=== PATIENT | male | born 1995 | race Caucasian/White ===

== ENCOUNTER → 2017-11-18 | Outpatient (CLI) | payer MEDICAID | LOC: M OUTALCOH 07:57 | DX: F12.20 Cannabis dependence, uncomplicated (principal) ==

== ENCOUNTER 2017-11-29 15:35 | Outpatient (RCR) | payer MEDICAID | END 2017-12-12 | LOC: M OUTALCOH 12-02 10:00 | DX: F12.20 Cannabis dependence, uncomplicated (principal) ==

== ENCOUNTER 2017-12-13 10:25 | Outpatient (RCR) | payer MEDICAID | END 2018-01-12 | LOC: M OUTALCOH 10:25 | DX: F12.20 Cannabis dependence, uncomplicated (principal) ==

== ENCOUNTER → 2018-02-23 | Outpatient (REF) | payer MEDICAID ==
[2018-02-23 12:36] LABS: BASO % 0.4 % (0.0-1.0); EOS # 0.1 10^3/uL (0.0-0.50); EOS % 0.9 % (0.0-3.0); HEMATOCRIT 41.5 % (42.0-52.0); HEMOGLOBIN 14.5 g/dl (13.5-17.5); IMMATURE GRANULOCYTE % 0.7 % (0-3.0); LYMPH # 1.7 10^3/uL (1.5-6.5); LYMPH % 25.1 % (24.0-44.0); MEAN CORPUSCULAR HGB CONC 34.9 g/dl (32.0-36.5); MEAN CORPUSCULAR VOLUME 91.6 fl (80.0-96.0); MONO # 0.5 10^3/uL (0.0-0.8); MONO % 6.9 % (0.0-5.0); NEUTROPHILS # 4.4 10^3/uL (1.8-7.7); PLATELET COUNT, AUTOMATED 202 10^3/uL (150-450); RED BLOOD COUNT 4.53 10^6/uL (4.30-6.10); RED CELL DISTRIBUTION WIDTH 12.2 % (11.5-14.5); WHITE BLOOD COUNT 6.7 10^3/uL (4.0-10.0)
[2018-02-23 14:02] LABS: ALBUMIN/GLOBULIN RATIO 1.18 (1.00-1.93); ALKALINE PHOSPHATASE 71 U/L (45-117); ALT/SGPT 20 U/L (12-78); ANION GAP 10 MEQ/L (8-16); AST/SGOT 11 U/L (7-37); BILIRUBIN,TOTAL 0.3 MG/DL (0.2-1.0); BLOOD UREA NITROGEN 14 MG/DL (7-18); CALCIUM LEVEL 8.4 MG/DL (8.5-10.1); CARBON DIOXIDE LEVEL 24 MEQ/L (21-32); CHLORIDE LEVEL 106 MEQ/L (98-107); CHOLESTEROL LEVEL 134 MG/DL (<200); CREATININE FOR GFR 0.76 MG/DL (0.70-1.30); GLOMERULAR FILTRATION RATE > 60.0 (>60); GLUCOSE, FASTING 98 MG/DL (70-100); HDL CHOLESTEROL 42 MG/DL (>40); LDL CHOLESTEROL 75 MG/DL (<100); NON-HDL-C 92 MG/DL; POTASSIUM SERUM 4.4 MEQ/L (3.5-5.1); SODIUM LEVEL 140 MEQ/L (136-145); TOTAL 25(OH) VITAMIN D 22.4 NG/ML (30.0-100.0); TOTAL PROTEIN 7.4 GM/DL (6.4-8.2); TRIGLYCERIDES LEVEL 86 MG/DL (<150)
== END ==
LOC: M LAB REF 11:56
DX: Z13.9 Encounter for screening, unspecified (principal)
CPT/HCPCS: 84443

== ENCOUNTER → 2020-05-01 | Outpatient (CLI) | payer SELFPAY | LOC: M LABSMTC 14:25 | PROVIDERS: ATTEND Pediatrics | DX: Z20.822 Contact with and (suspected) exposure to COVID-19 (principal) ==

== ENCOUNTER → 2021-01-29 | Outpatient (CLI) | payer MEDICAID, OTHER, SELFPAY | LOC: M LABSMTC 09:47 | PROVIDERS: ATTEND Pediatrics | DX: Z20.822 Contact with and (suspected) exposure to COVID-19 (principal) ==

== ENCOUNTER 2021-02-06 03:49 | Emergency (ER) | payer MEDICAID ==
[~2021-02-06] VITALS: Ht 167.6 cm; Wt 67.3 kg
[2021-02-06 05:01] LABS: HEMATOCRIT 42.9 % (42.0-52.0); HEMOGLOBIN 15.3 g/dl (13.5-17.5); MEAN CORPUSCULAR HEMOGLOBIN 32.1 pg (27.0-33.0); MEAN CORPUSCULAR HGB CONC 35.7 g/dl (32.0-36.5); MEAN CORPUSCULAR VOLUME 90.1 fl (80.0-96.0); PLATELET COUNT, AUTOMATED 287 10^3/uL (150-450); RED BLOOD COUNT 4.76 10^6/uL (4.30-6.10); WHITE BLOOD COUNT 6.8 10^3/uL (4.0-10.0)
[2021-02-06 05:25] LABS: AMPHETAMINES LEVEL URINE NEGATIVE (NEGATIVE); BARBITURATES URINE NEGATIVE (NEGATIVE); BENZODIAZEPINES URINE NEGATIVE (NEGATIVE); CANNABINOIDS URINE POSITIVE (NEGATIVE); COCAINE METABOLITE URINE NEGATIVE (NEGATIVE); METHADONE URINE NEGATIVE (NEGATIVE); OPIATES URINE NEGATIVE (NEGATIVE); PHENCYCLIDINE URINE NEGATIVE (NEGATIVE)
[2021-02-06 05:38] LABS: ACETAMINOPHEN LEVEL < 2.0 UG/ML (10.0-30.0); ALBUMIN 4.5 GM/DL (3.2-5.2); ALT/SGPT 26 U/L (12-78); BILIRUBIN,DIRECT 0.2 MG/DL (0.0-0.2); BILIRUBIN,TOTAL 0.5 MG/DL (0.2-1.0); BLOOD UREA NITROGEN 6 MG/DL (7-18); CALCIUM LEVEL 8.7 MG/DL (8.5-10.1); CARBON DIOXIDE LEVEL 24 MEQ/L (21-32); CHLORIDE LEVEL 109 MEQ/L (98-107); CREATININE FOR GFR 0.85 MG/DL (0.70-1.30); ETHYL ALCOHOL (ETHANOL) 0.121 % (0.000-0.010); GLOMERULAR FILTRATION RATE > 60.0 (>60); GLUCOSE, FASTING 98 MG/DL (70-100); POTASSIUM SERUM 3.8 MEQ/L (3.5-5.1); SALICYLATE LEVEL < 1.7 MG/DL (5.0-30.0); SODIUM LEVEL 143 MEQ/L (136-145); TOTAL PROTEIN 8.2 GM/DL (6.4-8.2)
[2021-02-06 17:40] LABS: RSV AMPLIFICATION NEGATIVE (NEGATIVE)
[2021-02-06] MEDS ORDERED: HOME MED LIST COMPLETE! XX SCH (20:10)
[2021-02-07 08:21] VITALS: BP 154/88
== END 2021-02-07 08:20 ==
LOC: M ED 03:49
DX: R45.851 Suicidal ideations (principal); F12.10 Cannabis abuse, uncomplicated

== ENCOUNTER 2024-12-18 23:32 | Emergency (ER) | payer MEDICAID, OTHER ==
[~2024-12-18] VITALS: Ht 167.6 cm; Wt 71.1 kg
[2024-12-19] MEDS: LIDOCAINE 2% MDV 20 ML VIAL SC ONE (05:15)
[2024-12-19] MEDS: NEOSPORIN OINT 0.9 GM PKT TOP ONE (06:13)
[2024-12-19 06:24] VITALS: BP 121/73; TEMP 98.5; O2SAT 98
== END 2024-12-19 06:25 | disposition home or self-care (01) ==
LOC: M ED 23:32
DX: S61.512A Laceration without foreign body of left wrist, initial encounter (principal); W26.0XXA Contact with knife, initial encounter; K21.9 Gastro-esophageal reflux disease without esophagitis; Y92.000 Kitchen of unspecified non-institutional (private) residence as the place of occurrence of the external cause; Y93.G1 Activity, food preparation and clean up; Y99.9 Unspecified external cause status